=== PATIENT | female | born 2000 ===

== ENCOUNTER 2022-12-13 13:10 | Emergency (ER) | payer SELFPAY ==
[2022-12-13 13:35] VITALS: BP 109/75; PULSE 70; RESP 16; TEMP 36.8; O2SAT 99
--- NOTE | 2022-12-13 14:26 | PC.NURSE ---
pt up to desk inquiring about wait times. pt informed of dept status. pt states she will just fix the problem at home.
== END 2022-12-13 15:21 | disposition left against medical advice (07) ==
DX: S09.90XA Unspecified injury of head, initial encounter (principal)
CPT/HCPCS: 99199